=== PATIENT | female | born 1990 | race African-American/Black ===

== ENCOUNTER 2021-04-04 10:48 | Emergency (ER) | payer MEDICAID ==
[~2021-04-04] VITALS: Ht 154.9 cm; Wt 69.0 kg
[2021-04-04] MEDS ORDERED: ACETAMINOPHEN 325MG TABLET PO ONE (11:30)
[2021-04-04] MEDS ORDERED: IBUP-2028 MT (12:14)
[2021-04-04 12:31] VITALS: BP 112/70
== END 2021-04-04 12:31 | disposition home or self-care (01) ==
LOC: ER 10:48
DX: S09.8XXA Other specified injuries of head, initial encounter (principal); S19.89XA Other specified injuries of other specified part of neck, initial encounter; M54.89 Other dorsalgia; R51.9 Headache, unspecified; V43.62XA Car passenger injured in collision with other type car in traffic accident, initial encounter; Y93.89 Activity, other specified; Y92.488 Other paved roadways as the place of occurrence of the external cause
CPT/HCPCS: 72040; 81025; 99283